=== PATIENT | male | born 1970 | race Caucasian/White ===

== ENCOUNTER → 2021-05-04 | Day surgery (SDC) | payer BC ==
[~2021-05-04] VITALS: Ht 185.4 cm; Wt 108.9 kg
[~2021-05-04] MED LIST: COLACE100 MG PO; PERCOCET 5-3251 EACH PO; ZOFRAN4 MG PO
[2021-05-04 07:46] VITALS: BP 167/81
[2021-05-04 09:55] VITALS: BP 162/93
[2021-05-04 10:10] VITALS: BP 157/92
[2021-05-04 10:25] VITALS: BP 152/85
[2021-05-04 10:40] VITALS: BP 148/88
[2021-05-04 10:55] VITALS: BP 156/91
== END | disposition home or self-care (01) ==
LOC: SDC 05-01 13:15
PROVIDERS: ATTEND Surgery
DX: K64.8 Other hemorrhoids (principal); Z20.822 Contact with and (suspected) exposure to COVID-19; Z79.899 Other long term (current) drug therapy